=== PATIENT | male | born 1955 | race Caucasian/White ===

== ENCOUNTER 2017-05-05 12:04 | Emergency (ER) | payer SELFPAY ==
[2017-05-05 12:54] LABS: #Lymphocytes 0.8 thou/uL (1.20-3.40); #Monocytes 0.5 thou/uL (0.11-0.59); #Neutrophils 6.3 thou/uL (1.40-6.50); %Lymphocytes 10.9 % (21.0-51.0); %Monocytes 5.9 % (0.0-10.0); %Neutrophils 83.1 % (42.0-75.0); Hemoglobin 15.9 g/dL (14.0-18.0); Mean Corpuscular HGB CONC 34.2 g/dL (32.0-36.0); Mean Corpuscular Volume 99.2 fl (80.0-94.0); Mean Platelet Volume 7.3 fL (7.4-10.4); Platelet Count 175 thou/uL (130-400); Red Blood Cell (RBC) Count 4.68 mill/uL (4.70-6.10); White Blood Cell (WBC) Count 7.6 thou/uL (4.8-10.8)
[2017-05-05 13:10] LABS: ALT (SGPT) 23 U/L (8-55); AST (SGOT) 41 U/L (5-34); Alkaline Phosphatase 65 U/L (40-150); Anion Gap 14 mmol/L (10-20); BUN (Urea Nitrogen) 9 mg/dL (8.4-25.7); Bilirubin, Total 0.9 mg/dL (0.2-1.2); Calc. Creatinine Clearance 0 mL/min (70-130); Calcium 9.4 mg/dL (7.8-10.44); Carbon Dioxide 22 mmol/L (22-29); Chloride 98 mmol/L (98-107); Estimated GFR-MDRD 82; Globulin 3.5 g/dL (2.4-3.5); Glucose 117 mg/dL (70-105); Potassium 3.7 mmol/L (3.5-5.1); Protein, Total 7.5 g/dL (6.0-8.3); Sodium 130 mmol/L (136-145)
[2017-05-05] MEDS ORDERED: Magnesium Sulfate 2 GM/NS 0.9% 50 ML BAG ONE (13:15)
[2017-05-05] MEDS ORDERED: methylPREDNISolone Sod Succ/PF 125 MG/2 ML VIAL ONE (13:15)
[2017-05-05] MEDS ORDERED: Water For Inject, Bacteriostat 30 ML ONE (13:16)
--- NOTE | 2017-05-05 13:43 | RAD ---
RADIOGRAPH CHEST 2 VIEWS: HISTORY: A 62-year-old male with dyspnea and fever. FINDINGS: There is hyperinflation of the lungs, consistent with COPD. There is no evidence of air space densit y, pneumothorax, or pulmonary edema. There is no cardiomegaly or pleural effusion. IMPRESSION: 1) No acute cardiopulmonary findings. 2) Emphysema. vira [] POS: [facility]
[2017-05-05] MEDS ORDERED: Oseltamivir 75 MG CAP PO SCH (13:45)
[2017-05-05] MEDS ORDERED: Azithromycin 500 MG in Sodium Chloride 0.9% 250 ML 250 ML IVPB ONE (14:15)
[2017-05-05] MEDS ORDERED: Ibuprofen 800 MG TAB ONE (14:17)
== END 2017-05-05 16:35 | disposition home or self-care (01) ==
LOC: ERS 12:04
DX: J20.9 Acute bronchitis, unspecified (principal); F17.210 Nicotine dependence, cigarettes, uncomplicated; J43.9 Emphysema, unspecified
CPT/HCPCS: 36415; 71020; 80053; 83605; 85025; 87040; 93005; 94640; 96361; 96365; 96367; 96374; 96375; 99406; J0456; J0696; J2930; J3475; J7050; J7620

== ENCOUNTER 2017-05-06 11:00 | Emergency (ER) | payer SELFPAY ==
--- NOTE | 2017-05-06 13:22 | RAD ---
PA CHEST AND RIGHT RIB SERIES: HISTORY: Injury, right-sided chest pain. FINDINGS: The heart size is normal. The lungs are expanded without focal areas of consolidation, pneumothorax, or pleural effusions. No right-sided rib fracture is seen. IMPRESSION: No acute process. POS: [facility]
--- NOTE | 2017-05-06 13:27 | RAD ---
RADIOGRAPH RIGHT ELBOW 4 VIEWS: DATE: 05/06/17. TIME: 1:40 p.m. HISTORY: A 62-year-old male status post acute trauma to the right elbow from fall. FINDINGS: No dislocation. There is a joint effusion. There is a broad, shallow, very irregular osseous defect of the dorsal cortical surface of the olecranon process, and adjacent multiple tiny calcific or ossi fic fragments in the soft tissues, with overlying soft tissue swelling. It is uncertain whether thes e represent chronic avulsion changes or acute avulsion injury. The rest of the proximal ulna, proxim al radius, and distal humerus demonstrate no fracture. There are small subcapital osteophytes at the radial head. Mild bony hypertrophy of the coronoid process. Joint effusion. IMPRESSION: 1. Irregular osseous cortical defect with multiple adjacent tiny calcific fragments in the soft tiss ues, at the dorsal surface of the olecranon process. It is uncertain whether these are chronic bean es or represent an acute avulsion fracture. 2. No other potential fracture. 3. Joint effusion. 4. Mild-moderate osteoarthrosis of the elbow. POS: [facility]
== END 2017-05-06 13:15 | disposition home or self-care (01) ==
LOC: ERS 11:00
DX: S52.022A Displaced fracture of olecranon process without intraarticular extension of left ulna, initial encounter for closed fracture (principal); S20.211A Contusion of right front wall of thorax, initial encounter; Z87.891 Personal history of nicotine dependence; W19.XXXA Unspecified fall, initial encounter
CPT/HCPCS: 24670; 99406

== ENCOUNTER 2018-06-11 15:03 | Outpatient (CLI) | payer MEDICAID ==
--- NOTE | 2018-06-11 15:42 | RAD ---
CHEST TWO VIEWS: HISTORY: Preop. COMPARISON: 05/05/2017 FINDINGS: The cardiac silhouette and pulmonary vasculature are unremarkable. The lungs remain hyperinflated wi th flattening of each hemidiaphragm. No confluent air space consolidation, pneumothorax, or pleural fluid. There are degenerative changes of the shoulders. IMPRESSION: Pulmonary hyperinflation, stable. No active cardiopulmonary abnormalities are otherwise demonstrated . POS: [facility]
== END 2018-06-11 15:04 | disposition home or self-care (01) ==
LOC: BICRAD 15:03
PROVIDERS: ATTEND Family Medicine
DX: Z01.818 Encounter for other preprocedural examination (principal); J44.9 Chronic obstructive pulmonary disease, unspecified; R91.8 Other nonspecific abnormal finding of lung field
CPT/HCPCS: 71046

== ENCOUNTER 2018-07-12 06:55 | Emergency (ER) | payer MEDICAID | END 2018-07-12 07:15 | disposition home or self-care (01) | LOC: ERS 06:55 | DX: K64.4 Residual hemorrhoidal skin tags (principal); J43.9 Emphysema, unspecified; I10 Essential (primary) hypertension; Z87.891 Personal history of nicotine dependence; Z79.899 Other long term (current) drug therapy | CPT/HCPCS: 99283 ==

== ENCOUNTER 2018-07-14 10:38 | Emergency (ER) | payer MEDICAID ==
[2018-07-14] MEDS ORDERED: Lidocaine Viscous Sol 2% 15 ml UD Cup ONE (11:20)
[2018-07-14] MEDS ORDERED: Lidocaine 4% Cream 5 GM TUBE w/ Tegaderm ONE (11:21)
== END 2018-07-14 11:34 | disposition home or self-care (01) ==
LOC: ERS 10:38
DX: K64.4 Residual hemorrhoidal skin tags (principal); I10 Essential (primary) hypertension; Z87.891 Personal history of nicotine dependence; Z79.899 Other long term (current) drug therapy; Z79.51 Long term (current) use of inhaled steroids
CPT/HCPCS: 99283

== ENCOUNTER 2018-07-29 14:31 | Outpatient (CLI) | payer OTHER ==
[2018-07-29 16:55] LABS: Anion Gap 11 mmol/L (10-20); BUN (Urea Nitrogen) 7 mg/dL (8.4-25.7); Calc. Creatinine Clearance 0 mL/min (70-130); Calcium 9.4 mg/dL (7.8-10.44); Carbon Dioxide 28 mmol/L (23-31); Chloride 99 mmol/L (98-107); Estimated GFR-MDRD Greater than 90; Glucose 83 mg/dL (80-115); Potassium 3.9 mmol/L (3.5-5.1); Sodium 134 mmol/L (136-145)
== END 2018-07-29 14:32 | disposition home or self-care (01) ==
LOC: LABBT 14:31
PROVIDERS: ATTEND Surgery
DX: Z01.812 Encounter for preprocedural laboratory examination (principal); K60.3 Anal fistula
CPT/HCPCS: 80048

== ENCOUNTER 2018-08-01 07:45 | Day surgery (SDC) | payer OTHER ==
[2018-07-29 15:15] VITALS: BMI 23.8
[2018-08-01] MEDS ORDERED: cefOXitin 2 GM VIAL ONE (08:32)
[2018-08-01] MEDS ORDERED: Sodium Chloride 0.9% 100 ML ONE (08:32)
[2018-08-01] MEDS ORDERED: Fentanyl 100 MCG/2 ML VIAL ONE ×2 (09:30→10:36)
[2018-08-01] MEDS ORDERED: Lidocaine 1% PF 5 ML VIAL ONE (09:32)
[2018-08-01] MEDS ORDERED: PROPOFOL 200 MG/20 ML VIAL ONE (09:32)
[2018-08-01] MEDS ORDERED: Ondansetron PF 4 MG/2 ML Vial ONE (09:32)
[2018-08-01] MEDS ORDERED: Ketorolac Tromethamine 30 MG/ML VIAL ONE (09:32)
[2018-08-01] MEDS ORDERED: Lidocaine 2% Jelly 5 ML TUBE ONE (10:26)
[2018-08-01] MEDS ORDERED: Bupivacaine/Epinephrine 0.25% 30 ML VIAL ONE (10:26)
[2018-08-01] MEDS ORDERED: hydrALAZINE 20 MG/ML VIAL ONE (11:34)
--- NOTE | 2018-08-02 11:24 | OP ---
DATE OF PROCEDURE: 08/01/2018 PREOPERATIVE DIAGNOSIS: Anal fistula. POSTOPERATIVE DIAGNOSIS: Anal fistula. PROCEDURE PERFORMED: Anal fistulotomy, complete. ANESTHESIA: General. ESTIMATED BLOOD LOSS: Minimal. COMPLICATIONS: None. SPECIMENS: None. DESCRIPTION OF PROCEDURE: The patient was taken to the operating room and laid supine on the operating room table. After general anesthetic was obtained, he was placed in lithotomy position. His perianal area was prepped and draped in a sterile fashion. A probe was passed from the external to the internal opening. Internal opening was superficial to the sphincter muscle just inside the anal canal. It did not go behind the sphincter muscle. The two holes were connected by opening up all tissue superficial with the cautery. The granulation bed was cauterized. There was no other fistula present. No damage to the sphincter muscle. Local anesthetic was applied. The patient was sent to Recovery in stable condition. All instrument counts, needle counts, and lap counts were correct. Job ID: [id number]
== END 2018-08-01 13:00 | disposition home or self-care (01) ==
LOC: SDC 07:45
PROVIDERS: ATTEND Surgery
PROC: 0DQQ3ZZ Repair Anus, Percutaneous Approach (ICD-10-PCS; principal; 2018-08-01)
DX: K60.3 Anal fistula (principal); I10 Essential (primary) hypertension; F17.210 Nicotine dependence, cigarettes, uncomplicated; J44.9 Chronic obstructive pulmonary disease, unspecified; Z79.899 Other long term (current) drug therapy
CPT/HCPCS: J0360; J0694; J1885; J2001; J2405; J2704; J3010; J7050

== ENCOUNTER 2019-01-09 12:05 | Outpatient (CLI) | payer OTHER | END 2019-01-09 12:06 | disposition home or self-care (01) | LOC: CP 12:05 | PROVIDERS: ATTEND Internal Medicine | DX: J44.9 Chronic obstructive pulmonary disease, unspecified (principal) | CPT/HCPCS: 94060; 94727; 94729 ==

== ENCOUNTER 2021-11-28 14:09 | Outpatient (CLI) | payer OTHER | END 2021-11-28 14:10 | disposition home or self-care (01) | LOC: BICCT 14:09 | PROVIDERS: ATTEND Internal Medicine Critical Care Medicine | DX: Z12.2 Encounter for screening for malignant neoplasm of respiratory organs (principal); F17.210 Nicotine dependence, cigarettes, uncomplicated | CPT/HCPCS: 71271 ==